=== PATIENT | female | born 1995 | race African-American/Black ===

== ENCOUNTER → 2016-07-09 | Outpatient (CLI) | payer OTHER ==
[2016-01-19 12:24] VITALS: BP 92/51
[2016-07-09 11:42] LABS: BILIRUBIN,URINE NEGATIVE (NEGATIVE); BLOOD/HEMOGLOBIN,URINE 1+ (NEGATIVE); GLUCOSE, URINE NEGATIVE (NEGATIVE); KETONES,URINE NEGATIVE (NEGATIVE); LEUKOCYTE ESTERASE ,URINE 3+ (NEGATIVE); NITRITES,URINE NEGATIVE (NEGATIVE); PROTEIN,URINE 2+ (NEGATIVE); UROBILINOGEN,URINE 2+ (NORMAL)
[2016-07-09 11:42] LABS: BASOPHILS % (AUTO) 0.3 % (0.2-1.0); EOSINOPHILS # (AUTO) 0.1 x10^3/uL (0.0-0.2); EOSINOPHILS % (AUTO) 1.1 % (0.9-2.9); HEMATOCRIT 33.8 % (36.0-47.0); LYMPHOCYTES # (AUTO) 1.7 X10^3/uL (1.3-2.9); LYMPHOCYTES % (AUTO) 12.6 % (21.0-51.0); MEAN CORPUSCULAR HEMOGLOBIN 25.8 pg (27.0-34.0); MEAN CORPUSCULAR HGB CONC 32.5 g/dL (33.0-35.0); MEAN CORPUSCULAR VOLUME 79.4 fL (80.0-100.0); MEAN PLATELET VOLUME 9.2 fL (7.4-11.0); MONOCYTES # (AUTO) 1.2 x10^3/uL (0.3-0.8); MONOCYTES % (AUTO) 9.1 % (0.0-13.0); NEUTROPHILS # (AUTO) 10.1 x10^3/uL (2.2-4.8); NEUTROPHILS % (AUTO) 76.9 % (42.0-75.0); PLATELET COUNT 267 X10^3/uL (150.0-450.0); RED BLOOD COUNT 4.26 X10^6/uL (3.5-5.4); RED CELL DISTRIBUTION WIDTH 13.4 % (11.6-16.5); WHITE BLOOD COUNT 13.1 X10^3/uL (3.6-10.0)
[2016-07-09 11:45] LABS: BLOOD UREA NITROGEN 7 mg/dL (7-18); CALCIUM 8.7 mg/dL (8.5-10.1); CARBON DIOXIDE 22.6 mmol/L (21-32); CHLORIDE 106 mmol/L (98-107); CREATININE 0.74 mg/dL (0.55-1.02); GLUCOSE 75 mg/dL (65-99); SODIUM 139 mmol/L (136-145); eGFR BLACK RACES > 60 (>60); eGFR NON BLACK RACES > 60 (>60)
[2016-07-09 12:00] LABS: COLOR,URINE YELLOW (YELLOW)
[2016-07-09 12:01] LABS: APPEARANCE,URINE SLIGHTLY HAZY (CLEAR); BACTERIA,URINE 1+ /HPF (NEGATIVE); SQUAMOUS EPITHELIAL CELL,UR MANY /HPF (NEGATIVE)
[2016-07-09 12:02] LABS: AMORPHOUS SEDIMENT,UR 2+ /HPF (NEGATIVE); MUCUS,URINE FEW /HPF (NEGATIVE)
[2016-07-09 12:17] LABS: HYPOCHROMASIA SLIGHT; PLATELET MORPHOLOGY COMMENT NORMAL (NORMAL)
== END ==
LOC: LAB 11:01
PROVIDERS: ATTEND Specialist
DX: Z01.818 Encounter for other preprocedural examination (principal); Z34.83 Encounter for supervision of other normal pregnancy, third trimester
CPT/HCPCS: 36415; 80048; 81001; 85025; 86592; 86850; 86900; 86901; 87086

== ENCOUNTER 2016-07-10 00:44 | Emergency (ER) | payer OTHER ==
[2016-07-10 00:58] VITALS: BP 114/72; BMI 27.4
[2016-07-10 01:10] LABS: BILIRUBIN,URINE NEGATIVE (NEGATIVE); BLOOD/HEMOGLOBIN,URINE 1+ (NEGATIVE); GLUCOSE, URINE NEGATIVE (NEGATIVE); KETONES,URINE NEGATIVE (NEGATIVE); LEUKOCYTE ESTERASE ,URINE 1+ (NEGATIVE); NITRITES,URINE NEGATIVE (NEGATIVE); PROTEIN,URINE 2+ (NEGATIVE); UROBILINOGEN,URINE NORMAL (NORMAL)
[2016-07-10 01:12] LABS: AMNISURE ROM TEST THERE IS A RUPTURE (NO RUPTURE)
[2016-07-10 01:19] LABS: APPEARANCE,URINE CLEAR (CLEAR); BACTERIA,URINE TRACE /HPF (NEGATIVE); COLOR,URINE YELLOW (YELLOW); RBC,URINE 0-3 /HPF (NEGATIVE); SQUAMOUS EPITHELIAL CELL,UR RARE /HPF (NEGATIVE)
[2016-07-10] MEDS ORDERED: D5 1/2 NS 1000 ML 1,000 ML IV ONE (01:43)
[2016-07-10] MEDS ORDERED: D5 1/2 NS 1000 ML 1,000 ML IV SCH (02:00)
== END 2016-07-10 01:50 | disposition other institution (70) ==
LOC: ER 00:44
DX: O36.5930 Maternal care for other known or suspected poor fetal growth, third trimester, not applicable or unspecified (principal); O99.02 Anemia complicating childbirth; Z37.0 Single live birth; O99.89 Other specified diseases and conditions complicating pregnancy, childbirth and the puerperium; O34.83 Maternal care for other abnormalities of pelvic organs, third trimester; Z3A.38 38 weeks gestation of pregnancy; Z23 Encounter for immunization
CPT/HCPCS: 81001; 84112; 99284; J7042

== ENCOUNTER 2016-07-10 01:46 | Inpatient (IN) | payer OTHER ==
[~2016-07-10 01:46] MED LIST: D5 1/2 NS 1000 ML 1,000 ML IV SCH; MORPHINE SULFATE INJ 2 MG IVP PRN; NUBAIN INJ 200 MG VIAL MULTIDOSE IVP PRN; PHENERGAN INJ 25 MG IV PRN; PITOCIN 10 UNITS in D5 LR 1000 ML 1,000 ML IV PRN; PITOCIN IVP ONE; REGLAN INJ 10 MG VIAL IVP PRN
[2016-07-10] MEDS ORDERED: LR 1000 ML IV 1,000 ML IV ONE ×2 (01:59→02:56)
[2016-07-10] MEDS ORDERED: D5 1/2 NS 1000ML W PITOCIN 20 U/L 1,000 ML IV ONE (02:13)
[2016-07-10] MEDS ORDERED: NAROPIN EPIDURAL 0.2% + FENTANYL 90MCG 60 ML EPI ONE (02:13)
[2016-07-10] MEDS ORDERED: FENTANYL INJ 100 mcg ONE (02:29)
[2016-07-10] MEDS ORDERED: NAROPIN EPIDURAL 0.2% 97 ML with FENTANYL INJ 250 mcg 150 MCG EPI PRN ×2 (02:56)
[2016-07-10] MEDS ORDERED: D5LR 1000ML W PITOCIN 10 U/L 1,000 ML IV ONE (03:03)
[2016-07-10] MEDS ORDERED: PHENERGAN INJ 25 MG IV PRN ×2 (04:05→04:59)
[2016-07-10] MEDS ORDERED: MOTRIN TAB 800 MG PO PRN ×2 (04:05→04:59)
--- NOTE | 2016-07-10 04:05 | DR.OB ---
OB Quick Note - Assessment/Plan Assessment/Plan: Delivery Note [facility] 07/10/16 at 4:00am Patient complete and pushing. Head delivered vaginally over intact perineum. Nose and mouth bulb suctioned. Nuchal cord x 1 reduced. Body delivered over intact perineum. Cord clamped x 2 and cut. handed to attendant. Cord sent for gases. Placenta delivered spontaneously / intact / 3 vessel cord. No vaginal / perineal / CVX tears. Viable female , VTX/OA, wt=5'12" and 9/9, stable to NBN. Mother stable to RR. [id number].
[2016-07-10] MEDS ORDERED: REGLAN INJ 10 MG VIAL IVP PRN (04:59)
[2016-07-10] MEDS ORDERED: AMBIEN PO PRN (04:59)
[2016-07-10] MEDS ORDERED: DERMOPLAST SPRAY TOP PRN (04:59)
[2016-07-10] MEDS ORDERED: MILK OF MAGNESIA PO PRN (04:59)
[2016-07-10] MEDS ORDERED: ADACEL TDaP IM ONE ×2 (04:59→13:00)
[2016-07-10] MEDS ORDERED: D5 1/2 NS 1000 ML 1,000 ML with PITOCIN 20 UNITS IV SCH ×2 (05:00)
[2016-07-10 05:35] LABS: HEMOGLOBIN 10.7 g/dL (12.0-16.0)
[2016-07-10] MEDS: D5 1/2 NS 1000 ML 1,000 ML with PITOCIN 20 UNITS IV SCH ×4 (08:10→16:35)
[2016-07-10] MEDS: ZANTAC PO SCH ×2 (10:20→20:47)
[2016-07-10] MEDS: PRENATAL PLUS PO SCH (10:21)
[2016-07-10] MEDS: FERROUS SULFATE PO SCH (19:21)
[2016-07-11] MEDS ORDERED: DEPO-PROVERA CONTRACEPTIVE INJ IM ONE (07:38)
[2016-07-11] MEDS: ZANTAC PO SCH (08:37)
[2016-07-11] MEDS: FERROUS SULFATE PO SCH (08:37)
[2016-07-11] MEDS: PRENATAL PLUS PO SCH (08:37)
[2016-07-11 12:26] VITALS: BP 105/75
== END 2016-07-11 12:20 | disposition home or self-care (01) | DRG 775 ==
LOC: LD 01:46 → MED/SURG 04:33
PROVIDERS: ADMIT Specialist; ATTEND Specialist
PROC: 10E0XZZ Delivery of Products of Conception, External Approach (ICD-10-PCS; principal; 2016-07-10)
PROC: 00HU33Z Insertion of Infusion Device into Spinal Canal, Percutaneous Approach (ICD-10-PCS; 2016-07-10)
PROC: 3E0234Z Introduction of Serum, Toxoid and Vaccine into Muscle, Percutaneous Approach (ICD-10-PCS; 2016-07-10)
DX: O36.5930 Maternal care for other known or suspected poor fetal growth, third trimester, not applicable or unspecified (principal); O99.02 Anemia complicating childbirth; Z37.0 Single live birth; O99.89 Other specified diseases and conditions complicating pregnancy, childbirth and the puerperium; O34.83 Maternal care for other abnormalities of pelvic organs, third trimester; Z3A.38 38 weeks gestation of pregnancy; Z23 Encounter for immunization
CPT/HCPCS: 09167; 36415; 59409; 80048; 81001; 84112; 85014; 85018; 85025; 86592; 86850; 86900; 86901; 87086; 96365; 99284; A4216; S0197; J1050; J2590; J2795; J3010; J7042; J7120